=== PATIENT | male | born 1980 | race Caucasian/White ===

== ENCOUNTER 2017-05-29 21:11 | Emergency (ER) | payer OTHER ==
[~2017-05-29] VITALS: Ht 177.8 cm; Wt 118.2 kg
[2017-05-29] MEDS ORDERED: GLUCOPHAGE500 MG/TAB PO (21:20)
[2017-05-29] MEDS ORDERED: MULTIVITAMIN1 SGL PO (21:21)
[2017-05-29] MEDS ORDERED: GLUCOTROL5 M2 PO (21:21)
[2017-05-29] MEDS ORDERED: ZESTRIL10 M1 PO (21:21)
[2017-05-29 21:45] VITALS: BP 154/99
== END 2017-05-29 21:45 | disposition home or self-care (01) ==
LOC: ED 21:11
DX: S61.431A Puncture wound without foreign body of right hand, initial encounter (principal); Z23 Encounter for immunization; W22.8XXA Striking against or struck by other objects, initial encounter; E11.9 Type 2 diabetes mellitus without complications; Z79.84 Long term (current) use of oral hypoglycemic drugs
CPT/HCPCS: 90715

== ENCOUNTER 2017-06-29 09:00 | Outpatient (RCR) | payer OTHER ==
[~2017-06-29 09:00] MED LIST: GLUCOPHAGE500 MG/TAB PO; GLUCOTROL5 M2 PO; MULTIVITAMIN1 SGL PO; ZESTRIL10 M1 PO
== END 2017-07-07 | disposition home or self-care (01) ==
LOC: PT
DX: M54.6 Pain in thoracic spine (principal); M62.81 Muscle weakness (generalized)

== ENCOUNTER → 2017-09-06 | Outpatient (CLI) | payer OTHER ==
[2017-09-06 08:20] LABS: BUN/CREATININE RATIO 20.7 (6.0-26.0); CALCIUM 8.9 mg/dL (8.4-10.2)
== END ==
LOC: LAB 07:52
PROVIDERS: Family Medicine
DX: I10 Essential (primary) hypertension (principal); E11.9 Type 2 diabetes mellitus without complications

== ENCOUNTER → 2018-03-23 | Outpatient (CLI) | payer OTHER | LOC: LAB 08:42 | DX: E11.9 Type 2 diabetes mellitus without complications (principal) ==

== ENCOUNTER → 2020-01-04 | Outpatient (CLI) | payer OTHER ==
[2020-01-04 08:54] LABS: ALBUMIN 4.6 g/dL (3.5-5.0); POTASSIUM 4.4 mmol/L (3.5-5.1)
[2020-01-04 08:55] LABS: CALCIUM 9.7 mg/dL (8.3-10.5)
[2020-01-04 08:56] LABS: TOTAL PROTEIN 7.3 g/dL (6.4-8.3)
[2020-01-04 08:58] LABS: TOTAL BILIRUBIN 0.8 mg/dL (0.2-1.2)
[2020-01-04 11:59] LABS: URINE APPEARANCE CLEAR; URINE BILIRUBIN NEGATIVE (NEGATIVE); URINE BLOOD NEGATIVE (NEGATIVE); URINE COLOR YELLOW; URINE KETONE 1+ (NEGATIVE); URINE LEUKOCYTE ESTERASE NEGATIVE (NEGATIVE); URINE NITRATE NEGATIVE (NEGATIVE); URINE PROTEIN(semi-quant) NEGATIVE (NEGATIVE); URINE UROBILINOGEN NORMAL (NORMAL); URINE WBC 0-1 /hpf (0-3)
[2020-01-04 12:08] LABS: CALCIUM 9.5 mg/dL (8.3-10.5)
== END ==
LOC: LAB 08:14
PROVIDERS: Family Medicine
DX: E11.9 Type 2 diabetes mellitus without complications (principal); I10 Essential (primary) hypertension; E66.9 Obesity, unspecified; G47.33 Obstructive sleep apnea (adult) (pediatric)

== ENCOUNTER 2020-01-19 16:10 | Emergency (ER) | payer BC ==
[~2020-01-19] VITALS: Ht 177.8 cm; Wt 101.4 kg
[2020-01-19] MEDS ORDERED: METFORMIN ER500 MG PO (16:17)
[2020-01-19 16:33] LABS: HEMATOCRIT 48.1 % (42.0-52.0); HEMOGLOBIN 16.1 g/dL (13.5-18.0); MEAN CELL VOLUME 85 fl (78-100); MEAN CORPUSCULAR HEMOGLOBIN 28 pg (27-31); MEAN CORPUSCULAR HGB CONC 34 g/dL (33-37); PLATELET COUNT 199 K/mm3 (130-400); RED BLOOD COUNT 5.68 M/mm3 (4.20-5.60); RED CELL DISTRIBUTION WIDTH 13.3 % (11.5-14.5); WHITE BLOOD COUNT 9.7 K/mm3 (4.8-10.8)
[2020-01-19 16:41] LABS: BAND 3 % (0-10); LYMPHOCYTE 5 % (20-51); MONOCYTE 4 % (3-10)
[2020-01-19 16:42] LABS: NEUTROPHILS 88 % (42-75)
[2020-01-19 16:44] LABS: ALBUMIN 4.5 g/dL (3.5-5.0); POTASSIUM 4.5 mmol/L (3.5-5.1)
[2020-01-19 16:45] LABS: CALCIUM 9.4 mg/dL (8.3-10.5)
[2020-01-19 16:46] LABS: TOTAL PROTEIN 7.3 g/dL (6.4-8.3)
[2020-01-19 16:48] LABS: TOTAL BILIRUBIN 1.2 mg/dL (0.2-1.2)
[2020-01-19] MEDS ORDERED: ZOFRAN ODT4 MG PO (20:50)
[2020-01-19 21:07] VITALS: BP 126/82
== END 2020-01-19 21:07 | disposition home or self-care (01) ==
LOC: ED 16:10
PROVIDERS: Nurse Practitioner Primary Care
DX: A08.4 Viral intestinal infection, unspecified (principal); E11.9 Type 2 diabetes mellitus without complications; I10 Essential (primary) hypertension; Z79.84 Long term (current) use of oral hypoglycemic drugs; Z88.0 Allergy status to penicillin
CPT/HCPCS: J2405; J7030

== ENCOUNTER → 2020-10-08 | Outpatient (CLI) | payer OTHER ==
[~2020-10-08] MED LIST changes: +METFORMIN ER500 MG PO; +ZOFRAN ODT4 MG PO
== END ==
LOC: LAB 08:41
DX: E11.9 Type 2 diabetes mellitus without complications (principal)

== ENCOUNTER → 2021-12-24 | Outpatient (CLI) | payer OTHER ==
[2021-12-24 16:53] LABS: ALBUMIN 4.3 g/dL (3.5-5.0); POTASSIUM 4.1 mmol/L (3.5-5.1)
[2021-12-24 16:54] LABS: CALCIUM 9.3 mg/dL (8.3-10.5)
[2021-12-24 16:55] LABS: TOTAL PROTEIN 7.2 g/dL (6.4-8.3)
[2021-12-24 16:57] LABS: TOTAL BILIRUBIN 0.8 mg/dL (0.2-1.2)
== END ==
LOC: LAB 16:31
PROVIDERS: Family Medicine
DX: E11.65 Type 2 diabetes mellitus with hyperglycemia (principal); I10 Essential (primary) hypertension; L20.9 Atopic dermatitis, unspecified

== ENCOUNTER → 2022-03-26 | Outpatient (CLI) | payer OTHER ==
[2022-03-28 08:19] LABS: ASPERGILLUS FUMIGATUS AL COUNT <0.10 kU/L (()); BOX ELDER-MAPLE ALLERGEN COUNT <0.10 kU/L (()); CAT DANDER ALLERGEN COUNT <0.10 kU/L (()); COCKROACH ALLERGEN COUNT <0.10 kU/L (()); COTTONWOOD TREE ALLERGEN COUNT <0.10 kU/L (()); DOG DANDER ALLERGEN COUNT <0.10 kU/L (()); DUST MITES (D.F.) ALLERG COUNT <0.10 kU/L (()); ELM TREE ALLERGEN COUNT <0.10 kU/L (()); OAK ALLERGEN COUNT <0.10 kU/L (()); ROUGH MARSH ELDER ALLERG COUNT <0.10 kU/L (())
[2022-03-28 08:20] LABS: BEEF (COW) ALLERGEN COUNT <0.10 kU/L (()); CHOCOLATE ALLERGEN COUNT <0.10 kU/L (()); CORN ALLERGEN COUN <0.10 kU/L (()); EGG WHITE ALLERGEN COUNT <0.10 kU/L (()); FIREBUSH ALLERGEN COUNT <0.10 kU/L (()); FISH-SHELLFISH MIX ALLGN COUNT <0.10 kU/L (()); PORK ALLERGEN COUNT <0.10 kU/L (()); SHORT RAGWEED ALLERGEN COUNT <0.10 kU/L (()); WHEAT ALLERGEN COUNT <0.10 kU/L (())
[2022-03-28 08:21] LABS: ALTERNARIA TENUIS CNT <0.10 kU/L (()); BERMUDA GRASS ALLERGEN COUNT <0.10 kU/L (()); CLADOSPORIUM ALLERGEN COUNT <0.10 kU/L (()); DUST MITES (D.P.) ALLERG COUNT <0.10 kU/L (()); RUSSIAN THISTLE ALLERGEN COUNT <0.10 kU/L (())
== END ==
LOC: LAB 12:54
PROVIDERS: Family Medicine
DX: R21 Rash and other nonspecific skin eruption (principal)

== ENCOUNTER → 2022-07-17 | Outpatient (CLI) | payer OTHER ==
[2022-07-17 14:19] LABS: POTASSIUM 4.1 mmol/L (3.5-5.1)
[2022-07-17 14:20] LABS: CALCIUM 9.8 mg/dL (8.3-10.5)
== END ==
LOC: LAB 13:57
PROVIDERS: Family Medicine
DX: E11.65 Type 2 diabetes mellitus with hyperglycemia (principal)

== ENCOUNTER → 2022-12-18 | Outpatient (CLI) | payer OTHER ==
[2022-12-18 16:23] LABS: HEMATOCRIT 45.2 % (42.0-52.0); HEMOGLOBIN 15.7 g/dL (13.5-18.0); MEAN PLATELET VOLUME 10.7 fl (7.4-10.4); RED BLOOD COUNT 5.48 M/mm3 (4.20-5.60); RED CELL DISTRIBUTION WIDTH 12.6 % (11.5-14.5); WHITE BLOOD COUNT 11.7 K/mm3 (4.8-10.8)
== END ==
LOC: LAB 15:49
PROVIDERS: Family Medicine
DX: L64.9 Androgenic alopecia, unspecified (principal); G47.33 Obstructive sleep apnea (adult) (pediatric); G47.09 Other insomnia

== ENCOUNTER 2024-07-15 13:04 | Emergency (ER) | payer OTHER ==
[~2024-07-15] VITALS: Ht 177.8 cm; Wt 106.8 kg
[~2024-07-15 13:04] MED LIST changes: +GLIPIZIDE10 M2 PO; -GLUCOTROL5 M2 PO
[2024-07-15 13:13] VITALS: BP 133/91
[2024-07-15] MEDS ORDERED: LANTUS PEN100 U/ML SQ (13:13)
[2024-07-15] MEDS ORDERED: OZEMPIC1 MG/0.71 SQ (13:13)
== END 2024-07-15 13:38 | disposition home or self-care (01) ==
LOC: ED 13:04
DX: H04.122 Dry eye syndrome of left lacrimal gland (principal)

== ENCOUNTER → 2024-11-17 | Outpatient (CLI) | payer OTHER ==
[~2024-11-17] MED LIST changes: +LANTUS PEN100 U/ML SQ; +OZEMPIC1 MG/0.71 SQ
== END ==
LOC: LAB 08:53
PROVIDERS: Family Medicine
DX: E11.65 Type 2 diabetes mellitus with hyperglycemia (principal)